=== PATIENT | male | born 1970 | race Caucasian/White ===

== ENCOUNTER 2024-01-18 13:32 | Emergency (ER) | payer OTHER ==
[~2024-01-18] VITALS: Ht 182.9 cm; Wt 120.0 kg
[2024-01-18 13:38] VITALS: O2SAT 96
[2024-01-18 13:39] VITALS: BP 132/85; TEMP 98.8
[2024-01-18 15:14] VITALS: PULSE 60; RESP 16; O2SAT 95
[2024-01-18] MEDS: IPRATROPIUM/ALBUTEROL 0.5-3(2.5)MG/3ML NEB HHN ONE (15:14)
[2024-01-18] MEDS: PREDNISONE 20MG TABLET PO ONE (15:41)
[2024-01-18] MEDS ORDERED: P50 MT (16:13)
[2024-01-18] MEDS ORDERED: ALBU90AE INH (16:13)
== END 2024-01-18 16:33 | disposition home or self-care (01) ==
LOC: ER 14:54
DX: J44.1 Chronic obstructive pulmonary disease with (acute) exacerbation (principal); B34.9 Viral infection, unspecified; Z20.822 Contact with and (suspected) exposure to COVID-19
CPT/HCPCS: 87804 ×2; 71045; 94640; 93005; 99285; 87426; J7512; Z7610 ×2

== ENCOUNTER 2024-01-30 20:46 | Emergency (ER) | payer OTHER ==
[~2024-01-30] VITALS: Ht 175.3 cm; Wt 73.0 kg
[~2024-01-30 20:46] MED LIST: ALBU90AE INH; P50 MT
[2024-01-30 20:48] VITALS: O2SAT 97
[2024-01-30] MEDS ORDERED: ONDANSETRON HCL 4MG/2ML INJ IV STA (20:53)
[2024-01-30] MEDS ORDERED: KETOROLAC 30MG/ML VIAL IV STA (20:53)
[2024-01-30] MEDS: ONDANSETRON HCL 4MG/2ML INJ IV NR (23:00)
[2024-01-30] MEDS: KETOROLAC 30MG/ML VIAL IV NR (23:00)
[2024-01-30 23:01] LABS: BASOPHILS % 0.2 % (0.0-2.0); EOSINOPHILS % 0.8 % (0.0-5.0); HEMATOCRIT. 43.7 % (42.0-52.0); HEMOGLOBIN. 14.7 g/dL (14.0-18.0); LYMPHOCYTES % 17.2 % (20.0-50.0); MEAN CORPUSCULAR HEMOGLOBIN 30.4 pg (28.0-32.0); MEAN CORPUSCULAR HGB CONC 33.7 g/dL (31.0-37.0); MEAN CORPUSCULAR VOLUME 90.2 fL (80.0-94.0); MEAN PLATELET VOLUME 8.6 fl (7.4-10.4); MONOCYTES % 6.2 % (2.0-8.0); NEUTROPHILS % 75.6 % (40.0-76.0); PLATELET 247 x1000/uL (130-400); RED BLOOD CELL COUNT 4.85 mill/uL (4.7-6.1); RED CELL DISTRIBUTION WIDTH 13.1 % (11.6-14.6); WHITE BLOOD COUNT 11.9 x1000/uL (4.5-11.0)
[2024-01-30 23:03] LABS: CARBON DIOXIDE 30 mEq/L (21-32); CHLORIDE 105 mEq/L (98-107); POTASSIUM 4.1 mEq/L (3.5-5.1); SODIUM 139 mEq/L (136-145)
[2024-01-30 23:08] LABS: CREATININE 1.1 mg/dL (0.6-1.3)
[2024-01-30 23:09] LABS: GLUCOSE 112 mg/dL (70-105); UREA NITROGEN BLOOD 10 mg/dL (9-23)
[2024-01-30 23:10] LABS: ALANINE AMINOTRANSFERASE 27 IU/L (10-49); ASPARTATE AMINOTRANSFERASE 16 IU/L (<34); TROPONIN I HIGH SENSITIVITY < 4 ng/L (3.0-53)
[2024-01-30 23:11] LABS: ALBUMIN 4.4 g/dL (3.2-4.8); BILIRUBIN DIRECT 0.1 mg/dL (<=3.0); BILIRUBIN TOTAL 0.5 mg/dL (0.1-1.0); PROTEIN TOTAL 6.8 g/dL (6.0-8.3)
[2024-01-30 23:12] LABS: INR 0.9; PROTHROMBIN TIME 10.6 sec (9.6-11.0)
[2024-01-31 00:20] VITALS: BP 139/85; PULSE 75; RESP 17; TEMP 36.44736; O2SAT 100
== END 2024-01-31 03:08 | disposition home or self-care (01) ==
LOC: ER 20:46
DX: R10.11 Right upper quadrant pain (principal); R11.2 Nausea with vomiting, unspecified; J44.9 Chronic obstructive pulmonary disease, unspecified; Z88.0 Allergy status to penicillin
CPT/HCPCS: 99284; 76705; 71045; 80076; 80048; 83690; 85025; 85610; 84484; 36415; J1885; J2405